=== PATIENT | female | born 1935 | race Caucasian/White ===

== ENCOUNTER → 2019-05-16 | Outpatient (CLI) | payer MEDICARE, OTHER ==
[2016-02-05 11:17] VITALS: BP 124/46
[~2019-05-16] MED LIST: ACET1TAB33 PO; ASCO500C PO; ASPI325T11 PO; ATEN100T PO; ATEN50TA PO; ATOR10TA PO; CHOL10002 PO; ENAL20TA PO; MULT-246 PO; NIFE30TA2 PO; NIFE60TA PO; NITR1PAT5 TD; OMEG-33 PO; POLY17PO29 PO; UBID100C PO; VITA1CAP PO; VITA400C11 PO; VITA80003 PO; WARF1TAB74 PO
--- NOTE | 2019-05-16 08:40 | RAD ---
PELVIS COMPLETE: 05/16/2019 7:00 AM INDICATION: 83 years old Female. Lower abdominal and pelvic pain. COMPARISON: None. TECHNIQUE: Transabdominal imaging of the pelvis was performed. FINDINGS: Uterus and ovaries are surgically absent. No suspicious adnexal mass. FREE FLUID: None. URINARY BLADDER: Unremarkable. IMPRESSION: No suspicious adnexal mass status post bilateral oophorectomy and hysterectomy. Electronically signed by: Clau Ball MD (05/16/2019 8:38 AM) [id number]
--- NOTE | 2019-05-16 08:44 | RAD ---
ABDOMEN COMPLETE: 05/16/2019 7:00 AM Indication: 83 years old Female. Lower abdominal pain. Comparison: None available TECHNIQUE: Sonographic evaluation of the abdomen is performed utilizing grayscale and color Doppler. FINDINGS: Liver: Homogenous normal echotexture.. There is hepatopedal flow within the portal venous system. No significant hepatomegaly. There is a 9 x 8 x 9 mm circumscribed predominantly anechoic structure in the right hepatic lobe suggestive of a simple cyst. Biliary system: CBD measures 7 mm. There is no intrahepatic or extrahepatic biliary dilatation. Gallbladder: Surgically absent . Pancreas: Visualized head and uncinate process are unremarkable. Body and tail are not visualized. Spleen: 7.3 cm. Right kidney: 9.0 x 4.6 x 4.8 cm. No hydronephrosis. Normal echotexture without focal mass or renal calculus. Left kidney: 9.4 x 4.2 x 4.2 cm. No hydronephrosis. Normal echotexture without focal mass or renal calculus. Abdominal aorta and IVC: Visualized portions unremarkable. Proximal aorta measures 1.5 cm. Mid aorta measures 1.0 cm. Distal aorta measures 1.0 cm. Calcified atheromatous plaque is identified. Free fluid:None. IMPRESSION: 1. There is a 9 x 8 x 9 mm cyst in the right hepatic lobe. No suspicious hepatic mass. 2. Status post cholecystectomy without significant intrahepatic or extrahepatic biliary ductal dilatation. Common bile duct measures up to 7 mm. Electronically signed by: Clau Ball MD (05/16/2019 8:41 AM) [facility]
== END | disposition home or self-care (01) ==
LOC: US 06:41
PROVIDERS: ATTEND Family Medicine
DX: K76.89 Other specified diseases of liver (principal); Z90.710 Acquired absence of both cervix and uterus; Z90.722 Acquired absence of ovaries, bilateral
CPT/HCPCS: 76700; 76856

== ENCOUNTER → 2019-06-22 | Day surgery (SDC) | payer MEDICARE, OTHER ==
[~2019-06-22] MED LIST changes: +IV RINGERS,LACTATED 1000ML 1,000 ML IV SCH; +LIDOCAINE 1% PF 2 ML VIAL. ID PRN; -NITR1PAT5 TD; +NITR1PAT72 TD; +ONDANSETRON PF 4 MG/2 ML VIAL. IV PRN; +PROCHLORPERAZINE 10 MG/2 ML VIAL. IV PRN; +fentaNYL PF VIAL 100 MCG/2 ML VIAL IV PRN
[2019-06-22 09:00] VITALS: BP 126/58
--- NOTE | 2019-06-22 14:58 | CONS ---
DATE OF CONSULTATION: 06/22/2019 REFERRING PHYSICIAN: Torrey Malone MD REASON FOR CONSULTATION: Diarrhea. HISTORY OF PRESENT ILLNESS: This is an 83-year-old female with past medical history significant for breast cancer, hypertension, status post myocardial infarction, was seen with persistent diarrhea that has been present for several months. Stool studies have been negative. Lomotil helps with the diarrhea when taken until wears off and the diarrhea recurs; no exotic travel, water consumption, or recent antibiotics are elicited. No extraintestinal manifestations of inflammatory bowel disease are noted. Weight and appetite have been stable and she is otherwise frustrated with continued symptoms. PAST MEDICAL HISTORY: Breast cancer, hypertension, status post myocardial infarction, and hyperlipidemia. ALLERGIES: None. MEDICATIONS: Include aspirin, atenolol, atorvastatin, vitamin D, enalapril, multivitamin, nifedipine, nitroglycerin, and omega 3. FAMILY AND SOCIAL HISTORY: Significant for breast cancer with sister, cerebrovascular accident with her mother, myocardial infarction with her father; nondrinker, nonsmoker. PAST SURGICAL HISTORY: Status post hysterectomy, tonsillectomy, eye surgery, and breast surgery. REVIEW OF SYSTEMS: Per records. PHYSICAL EXAMINATION: GENERAL: Reveals a well-nourished, well-developed female, who is alert and cooperative, in no acute distress. VITAL SIGNS: Temperature 98.2, pulse 66, respirations 20. HEENT: Reveals normocephalic, atraumatic head. Pupils and extraocular muscles are not tested. Sclerae are anicteric. NECK: Supple. LUNGS: Clear. CARDIOVASCULAR: Reveals an S1, S2 without S3, S4 or appreciable murmur. ABDOMEN: Reveals a soft abdomen, normal bowel sounds, without appreciable hepatosplenomegaly; multiple surgical incisions. EXTREMITIES: Reveal no cyanosis, clubbing, or edema. IMPRESSION AND PLAN: Diarrhea, etiology is to be determined. Differential includes collagenous colitis, inflammatory bowel disease, colon polyps, colon cancer, ischemic colitis, diverticular disease and/or irritable bowel syndrome. Therefore, recommend colonoscopy to further assess. Risks and benefits of procedure including risk of hemorrhage and perforation during the operation have been discussed. The patient is willing to proceed at this time. GAYATHRI BENTON MD DR: TISHA/dayan JOB#: [id number] / [id number]
--- NOTE | 2019-06-23 14:07 | PATHOLOGY ---
[facility] Accession Number: [id number] . 01 Material submitted: . colon - RANDOM COLON BIOPSY . 01 Clinical history: . Diarrhea . 02 Diagnosis: Colonic mucosa, random colon biopsies: - No significant pathologic abnormalities. (JPM:[facility] 06/23/2019) QTP 06/23/2019 0906 Local . 02 Comment: Sections of the random colon biopsy reveal multiple segments of colonic mucosa containing several mucosal-associated lymphoid aggregates. There is no evidence of a chronic destructive colitis, lymphocytic colitis or collagenous colitis. (JPM:[facility] 06/23/2019) . 02 Electronically signed: . Carroll Low MD, Pathologist NPI- [id number] . 01 Gross description: . Received in formalin labeled "Destiney Mahajan, random colon BX," are multiple segments of alra soft tissue measuring 2.0 x 0.5 x 0.1 cm in aggregate dimensions. The specimen is filtered and entirely submitted in cassette A1. (TSD; 06/22/2019) TOB/TOB 06/22/2019 1839 Local . 02 Pathologist provided ICD-10: R19.7 . 02 CPT . 990132 Specimen Comment: A courtesy copy of this report has been sent to Specimen Comment: [phone], . Specimen Comment: Report sent to / DR HENDERSON Performed at: 01 [facility] [address], [place] [id number] MD Omid Lopez MD Phone: [phone] Performed at: 02 [facility] [address] [place], [place] [id number] MD Carroll Low MD Phone: [phone]
== END ==
LOC: ENDOS 06:48
PROVIDERS: ATTEND Internal Medicine Gastroenterology
DX: K52.9 Noninfective gastroenteritis and colitis, unspecified (principal); K57.30 Diverticulosis of large intestine without perforation or abscess without bleeding; K64.0 First degree hemorrhoids; I10 Essential (primary) hypertension; I25.2 Old myocardial infarction; E78.5 Hyperlipidemia, unspecified; Z85.3 Personal history of malignant neoplasm of breast; Z79.82 Long term (current) use of aspirin; Z90.710 Acquired absence of both cervix and uterus; Z98.890 Other specified postprocedural states
CPT/HCPCS: 45380; 88305